=== PATIENT | female | born 1995 | race Caucasian/White ===

== ENCOUNTER → 2019-02-02 | Outpatient (CLI) | payer OTHER ==
--- NOTE | 2019-02-02 11:19 | 2DMMODE ---
[facility] [address] [place] [address] 2 D/M-MODE ECHOCARDIOGRAM Name: LOUISE MARIN Room #: REG [facility]#: [id number] Admission: 02/02/19 Attend Phys: Raman Shah Discharge: Date of : 89 Report #: [id number] THIS REPORT FOR: //name// APPROVED REPORT Study performed: 02/02/2019 10:20:17 EXAM: Comprehensive 2D, Doppler, and color-flow Echocardiogram Patient Location: Out-Patient Status: routine BSA: 1.44 HR: 94 bpm BP: 120/94 mmHg Rhythm: NSR Other Information Study Quality: Adequate Indications Tachycardia 2D Dimensions RVDd: 18.34 mm IVSd: 6.54 (7-11mm) LVOT Diam: 18.27 (18-24mm) LVDd: 36.44 mm PWd: 7.52 (7-11mm) Ascending Ao: 25.93 (22-36mm) LVDs: 24.30 (25-40mm) Aortic Root: 24.22 mm Volumes Left Atrial Volume (Systole) Single Plane 4CH: 8.37 mL Single Plane 2CH: 19.89 mL LA ESV Index: 11.00 mL/m2 Aortic Valve AoV Peak Eduardo.: 0.90 m/s AO Peak Gr.: 3.24 mmHg LVOT Max P.65 mmHg LVOT Max V: 0.81 m/s ANITHA Vmax: 2.37 cm2 Mitral Valve E/A Ratio: 1.2 MV Decel. Time: 202.97 ms MV E Max Eduardo.: 0.75 m/s [facility] [address] [place] [address] 2 D/M-MODE ECHOCARDIOGRAM Name: LOUISE MARIN Room #: REG [facility]#: [id number] Admission: 02/02/19 Attend Phys: Raman Shah Discharge: Date of : 89 Report #: [id number] MV A Eduardo.: 0.64 m/s MV PHT: 58.86 ms IVRT: 76.12 ms Pulmonary Valve PV Peak Eduardo.: 0.92 m/s PV Peak Gr.: 3.37 mmHg Pulmonary Vein P Vein S: 0.59 m/s P Vein D: 0.58 m/s P Vein S/D Ratio: 1.02 Tricuspid Valve TR Peak Eduardo.: 1.89 m/s RAP Estimate: 5.00 mmHg TR Peak Gr.: 14.33 mmHg PA Pressure: 19.00 mmHg Left Ventricle The left ventricle is normal size. There is normal left ventricular wall thickness. The left ventricular systolic function is normal. The left ventricular ejection fraction is within the normal range. LVEF is 55-60%. The left ventricular diastolic function is normal. Right Ventricle The right ventricle is normal size. The right ventricular systolic function is normal. Atria The left atrium size is normal. The right atrium size is normal. Aortic Valve The aortic valve is normal in structure. No aortic regurgitation is present. There is no aortic valvular stenosis. Mitral Valve The mitral valve is normal in structure. There is no mitral valve regurgitation noted. No evidence of mitral valve stenosis. Tricuspid Valve The tricuspid valve is normal in structure. Trace tricuspid regurgitation. Estimated PAP is 19mmHg Pulmonic Valve The pulmonary valve is normal in structure. There is no pulmonic valvular regurgitation. [facility] [place] [address] 2 D/M-MODE ECHOCARDIOGRAM Name: LOUISE MARIN Room #: REG [facility].#: [id number] Admission: 02/02/19 Attend Phys: Raman Shah Discharge: Date of : 89 Report #: [id number] Great Vessels The aortic root is normal in size. The ascending aorta is normal in size. IVC is normal in size and collapses >50% with inspiration. Pericardium There is no pericardial effusion. <Conclusion> The left ventricle is normal size. There is normal left ventricular wall thickness. The left ventricular systolic function is normal. The left ventricular diastolic function is normal. The right ventricle is normal size. The left atrium size is normal. The aortic valve is normal in structure. The mitral valve is normal in structure. Trace tricuspid regurgitation. Estimated PAP is 19mmHg <ELECTRONICALLY SIGNED> By: Dharmesh Calle MD 02/02/19 1119 18 18 Dharmesh Calle MD /INF
== END ==
LOC: CV 10:00
DX: R00.0 Tachycardia, unspecified (principal); Z91.018 Allergy to other foods; Z88.8 Allergy status to other drugs, medicaments and biological substances

== ENCOUNTER 2020-02-22 21:56 | Emergency (ER) | payer OTHER ==
[~2020-02-22] VITALS: Ht 154.9 cm; Wt 45.4 kg
[2020-02-22] MEDS ORDERED: WELLBUTRIN SR150 MG PO (22:10)
[2020-02-22] MEDS ORDERED: AMITRIPTYLINE H25 M4 PO (22:11)
[2020-02-22] MEDS ORDERED: KAPSPARGO SPRIN25 MG PO (22:12)
[2020-02-22] MEDS ORDERED: SPIRONOLACTONE100 M1 PO (22:12)
[2020-02-22] MEDS ORDERED: ZOFRAN ODT4 MG DISSOLVE (22:13)
[2020-02-22] MEDS ORDERED: DICYCLOMINE HCL20 MG PO (22:14)
[2020-02-22] MEDS ORDERED: XANAX XR0.5 MG PO (22:15)
[2020-02-22 23:21] LABS: HEMATOCRIT 41.1 % (37.0-47.0); HEMOGLOBIN 13.6 gm/dL (12.0-15.0); MCH 29.4 pg (26.0-34.0); MCHC 33.1 g/dL (28.0-37.0); RBC 4.62 mil/uL (4.20-5.00); RDW 13.6 % (10.5-14.5); WBC 4.1 thou/uL (4.0-11.0)
[2020-02-22 23:35] LABS: ANION GAP 10 mmol/L (7-16); BUN 12 mg/dL (7-18); CALCIUM 8.7 mg/dL (8.5-10.1); CHLORIDE 105 mmol/L (98-107); CO2 27 mmol/L (21-32); CREATININE 1.2 mg/dL (0.6-1.0); GLUCOSE 112 mg/dL (74-106); SODIUM 142 mmol/L (136-145)
[2020-02-22 23:44] LABS: TROPONIN-I <0.06 ng/mL (<0.06)
[2020-02-23 00:02] LABS: MAGNESIUM 1.9 mg/dL (1.8-2.4)
[2020-02-23 00:16] LABS: URINE BILIRUBIN NEGATIVE (Negative); URINE BLOOD 2+ (Negative); URINE CLARITY CLEAR; URINE COLOR YELLOW; URINE GLUCOSE-RANDOM* NEGATIVE (Negative); URINE KETONES NEGATIVE (Negative); URINE LEUKOCYTES-REFLEX NEGATIVE (Negative); URINE NITRITE-REFLEX NEGATIVE (Negative); URINE PROTEIN (DIPSTICK) NEGATIVE (Negative); URINE UROBILINOGEN 0.2 E.U./dl (0.2-1.0)
[2020-02-23 00:26] LABS: BACTERIA-REFLEX 1-9 Few /HPF (None Seen); CASTS None Seen /LPF (None Seen); CRYSTALS None Seen /LPF (None Seen); MUCUS 0-3 Light strn/LPF (None Seen); SQUAMOUS 4-10 Moderate /LPF (0-3); URINE RBC 3-10 Few /HPF (0-2); URINE WBC-REFLEX 0-5 Rare /HPF (0-5)
[2020-02-23 00:34] VITALS: BP 123/87
--- NOTE | 2020-02-23 07:53 | EKG ---
[facility] [place] [address] ELECTROCARDIOGRAM REPORT Name: LOUISE MARIN Room #: DEP [facility]#: [id number] Admission: 02/22/20 Attend Phys: Discharge: 02/23/20 Date of : 89 Report #: [id number] THIS REPORT FOR: cc: Louise Pina DNP, Mary E. DNP Lundgren, Craig H. MD [facility] ~ THIS REPORT FOR: //name// [facility] ED Test Date: 2020-02-22 Test Time: 22:45:50 Pat Name: LOUISE MARIN Department: Room: Gender: F Back End Web Developer: [place] [id number] : 1995 Requested By: Darrick Cervantes Order Number: [id number] MD: Trey Meade Measurements Intervals [place] Rate: 130 P: 57 AR: 105 QRS: -6 QRSD: 73 T: 38 QT: 291 QTc: 428 Interpretive Statements Sinus tachycardia Atrial premature complex No previous ECG available for comparison Electronically Signed On 02-23-2020 7:53:10 PREPPER by Trey Meade [email or web address] <ELECTRONICALLY SIGNED> By: Trey Meade MD, [facility] 02/23/20 0753 D: 115 224 Trey Meade MD, FACC /EPI
== END 2020-02-23 00:43 | disposition home or self-care (01) ==
LOC: ER 21:56
PROVIDERS: Emergency Medicine
DX: E86.0 Dehydration (principal); Z79.2 Long term (current) use of antibiotics; Z79.899 Other long term (current) drug therapy; Z88.1 Allergy status to other antibiotic agents